=== PATIENT | female | born 1995 | race Caucasian/White ===

== ENCOUNTER 2018-05-25 11:03 | Observation (INO) | payer OTHER ==
[2018-05-25] MEDS ORDERED: NS 1,000 ML IV ONE (11:21)
[2018-05-25 11:29] LABS: PLATELET COUNT 265 10^3/uL (150-400)
--- NOTE | 2018-05-25 11:55 | EDPHY ---
H & P Time Seen by Provider: 05/25/18 11:05 HPI/ROS: CHIEF COMPLAINT: Syncope HISTORY OF PRESENT ILLNESS: 22-year-old female presents to the emergency department by ambulance after having a syncopal episode. The patient states that this morning she woke up and she went to a marijuana dispensary and was standing at the counter and she felt lightheaded and dizzy and felt like she was going to pass out. She had a witnessed syncopal episode and was caught by her friend. She did not sustain any trauma. She has had these symptoms in the past. She has a history of anxiety and PTSD and is prescribed clonidine 0.3 mg to 0.6 mg that she takes as bedtime as needed for insomnia. She also takes Klonopin twice daily for symptoms of anxiety. She denies any other substance abuse. Currently has no complaints. REVIEW OF SYSTEMS: Constitutional: No fever, no chills. Eyes: No double or blurry vision. ENT: No sore throat. Respiratory: No cough, no shortness of breath. Cardiac: No chest pain. Gastrointestinal: No abdominal pain, vomiting or diarrhea. Genitourinary: No dysuria. Musculoskeletal: No neck or back pain. Skin: No rashes. Neurological: No headache. Past Medical/Surgical History: PTSD, anxiety, marijuana use Social History: Single Smoking Status: Never smoked Physical Exam: General Appearance: Alert, no distress. Initial blood pressure was 80/60. Heart rate of 40 Eyes: Pupils equal and round. Extraocular motions are all intact. ENT: Mouth: Mucous membranes moist. Respiratory: No wheezing, rhonchi, or rales, lungs are clear to auscultation. Cardiovascular: Regular rate and rhythm. Bradycardic. Gastrointestinal: Abdomen is soft and nontender, no masses, no rebound or guarding, bowel sounds normal. Neurological: Alert and oriented x 3, cranial nerves II through XII grossly intact Skin: Warm and dry, no rashes. Musculoskeletal: Nontender to palpate along the cervical, thoracic or lumbar spine. Neck is supple. Extremities: Full range of motion and no peripheral edema. Psychiatric: Patient is oriented X 3, there is no agitation. Constitutional: Initial Vital Signs Temperature (C) 36.7 C 05/25/18 11:10 Heart Rate 45 L 05/25/18 11:10 Respiratory Rate 16 05/25/18 11:10 Blood Pressure 88/52 L 05/25/18 11:10 O2 Sat (%) 92 05/25/18 11:10 O2 Delivery Mode Room Air Allergies/Adverse Reactions: No Known Allergies Allergy (Verified 05/25/18 13:30) Home Medications: Medication Instructions Recorded Dextroamphetamine/Amphetamine 10 mg PO DAILY PRN 05/25/18 [Adderall Xr 10 mg Capsule] Herbals/Supplements -Info Only 1 ea PO DAILY 05/25/18 Ibuprofen [Motrin (*)] 200 mg PO DAILY PRN 05/25/18 Levothyroxine [Synthroid 200 mcg 200 mcg PO DAILY06 05/25/18 (*)] Vitamin B Complex [Vitamin B 1 each PO DAILY 05/25/18 Complex (OTC)] clonIDINE [Catapres (*)] 0.3 mg PO HS 05/25/18 clonazePAM [Klonopin (*)] 0.25 mg PO DAILY@15 05/25/18 clonazePAM [Klonopin (*)] 0.5 mg PO DAILY 05/25/18 clonazePAM [klonoPIN (*)] 1 mg PO HS 05/25/18 Medical Decision Making ED Course/Re-evaluation: Patient tells me that she took a total of 0.6 mg of clonidine last night to help her sleep. This is as directed by her psychiatrist. The patient presents to the emergency department initially hypotensive. She received 2 L of IV normal saline. Blood pressure was 100/70. Heart rate remained consistently will below 40. The patient was not complaining feeling dizzy or having any pain in her chest or having difficulty breathing. The case was discussed with Dr. Serafin Sultana, secondary supervising physician, who did not directly evaluate the patient but agrees with treatment plan. He recommended calling ordnance engineering technician on-call. I spoke with Dr. Garrison Jesus, ordnance engineering technician on-call, who recommended that the patient be admitted to the hospitalist due to syncope for telemetry monitoring to make sure that her bradycardia clears possibly due to medication. Differential Diagnosis: Including but not limited to adverse reaction to medication, arrhythmia, electrolyte abnormality, substance abuse - Data Points Laboratory Results: Laboratory Results 05/25/18 11:20 05/25/18 11:20 05/25/18 05/25/18 05/25/18 11:20 11:20 11:20 WBC RBC Hgb Hct MCV MCH MCHC RDW Plt Count MPV Neut % (Auto) Lymph % (Auto) [place] % (Auto) Eos % (Auto) Baso % (Auto) Nucleat RBC Rel Count Absolute Neuts (auto) Absolute Lymphs (auto) Absolute Monos (auto) Absolute Eos (auto) Absolute Basos (auto) Absolute Nucleated RBC Immature Gran % Immature Gran # Sodium 140 mEq/L mEq/L (135-145) Potassium 4.1 mEq/L mEq/L (3.3-5.0) Chloride 105 mEq/L mEq/L (97-110) Carbon Dioxide 21 mEq/l L mEq/l (22-31) Anion Gap 14 mEq/L mEq/L (8-16) BUN 9 mg/dL mg/dL (7-23) Creatinine 0.8 mg/dL mg/dL (0.6-1.0) Estimated GFR > 60 Glucose 95 mg/dL mg/dL (70-100) Calcium 9.9 mg/dL mg/dL (8.5-10.4) Troponin I < 0.012 ng/mL ng/mL (0.000-0.034) TSH 1.480 uIU/mL uIU/mL (0.465-4.680) Beta HCG, Qual NEGATIVE 05/25/18 11:20 WBC 4.17 10^3/uL 10^3/uL (3.80-9.50) RBC 4.71 10^6/uL 10^6/uL (4.18-5.33) Hgb 13.7 g/dL g/dL (12.6-16.3) Hct 41.2 % % (38.0-47.0) MCV 87.5 fL fL (81.5-99.8) MCH 29.1 pg pg (27.9-34.1) MCHC 33.3 g/dL g/dL (32.4-36.7) RDW 12.9 % % (11.5-15.2) Plt Count 265 10^3/uL 10^3/uL (150-400) MPV 9.5 fL fL (8.7-11.7) Neut % (Auto) 37.2 % L % (39.3-74.2) Lymph % (Auto) 52.5 % H % (15.0-45.0) [place] % (Auto) 8.9 % % (4.5-13.0) Eos % (Auto) 0.5 % L % (0.6-7.6) Baso % (Auto) 0.7 % % (0.3-1.7) Nucleat RBC Rel Count 0.0 % % (0.0-0.2) Absolute Neuts (auto) 1.55 10^3/uL L 10^3/uL (1.70-6.50) Absolute Lymphs (auto) 2.19 10^3/uL 10^3/uL (1.00-3.00) Absolute Monos (auto) 0.37 10^3/uL 10^3/uL (0.30-0.80) Absolute Eos (auto) 0.02 10^3/uL L 10^3/uL (0.03-0.40) Absolute Basos (auto) 0.03 10^3/uL 10^3/uL (0.02-0.10) Absolute Nucleated RBC 0.00 10^3/uL 10^3/uL (0-0.01) Immature Gran % 0.2 % % (0.0-1.1) Immature Gran # 0.01 10^3/uL 10^3/uL (0.00-0.10) Sodium Potassium Chloride Carbon Dioxide Anion Gap BUN Creatinine Estimated GFR Glucose Calcium Troponin I TSH Beta HCG, Qual Medications Given: Clonazepam (Klonopin) 0.25 mg PO DAILY@15 GEMA Stop: 11/21/18 15:59 Last Admin: 05/25/18 17:03 Dose: 0.25 mg Discontinued Medications Sodium Chloride (Ns) 1,000 mls @ 0 mls/hr IV ONCE ONE PRN Reason: Wide Open Stop: 05/25/18 11:22 Last Admin: 05/25/18 11:56 Dose: 1,000 mls Departure - Departure Disposition: [facility] Clinical Impression: Bradycardia Syncope Qualifiers: Syncope type: unspecified Qualified Code(s): R55 - Syncope and collapse Condition: Good
[2018-05-25] MEDS ORDERED: ACETAMINOPHEN 325 MG TAB PO PRN (13:31)
[2018-05-25] MEDS ORDERED: IBUPROFEN 200 MG TAB PO PRN (13:33)
--- NOTE | 2018-05-25 13:59 | GDS ---
[f rep st] DISCHARGE SUMMARY CHIEF COMPLAINT: Syncope. HISTORY OF PRESENT ILLNESS: This is a 22-year-old female, who presented with syncope. Notably, she takes clonidine to help her sleep at night. Her dosage is from 0.3 to 0.6. She had difficulty sleep ing last night. Thus she took the higher dose. She was in a marijuana dispensary today when she had a syncopal episode. She had a prodrome of feeling lightheaded with the room slowly going dark. She had no palpitations, chest pain, or shortness of breath. This was witnessed, and she did not have a ny seizure activity. She completely lost consciousness and knocked over a computer and was then help ed to the ground. She is not currently complaining of any significant pain. She has had about 2 or 3 episodes of presyncope in the past year since she has started clonidine. She normally takes the 0. 3 mg dose, does not relate the previous syncopal episodes to the higher dose. She ends up taking the higher dose about once every month or two. She additionally takes Adderall; however, she did not ta ke this today. She tells me her pulse is normally in the 50s and she is normally told that she has a slightly low blood pressure. She is currently not feeling dizzy or lightheaded. She was feeling so mewhat dehydrated, is feeling better after receiving 2 L of normal saline. PAST MEDICAL/SURGICAL HISTORY: 1. ADHD. 2. PTSD. 3. Hypothyroid. MEDICATIONS: Please see medication reconciliation. ALLERGIES: No known drug allergies. SOCIAL HISTORY: She smokes marijuana. She does not use any illegal drugs. She drinks about once or twice a week. FAMILY HISTORY: Her mother had heart disease. Her father had low blood pressure. REVIEW OF SYSTEMS: A 10-point review of systems is conducted and is negative except per HPI. PHYSICAL EXAM: VITAL SIGNS: Initial blood pressure 88/52, heart rate 45, respiration rate 16, satur ating 92% on room air. Temperature 36.7. GENERAL: The patient is a pleasant female who is resting comfortably in no acute distress. HEENT: Shows her to be normocephalic/atraumatic. CARDIOVASCULAR: Shows her to be bradycardic. There are no murmurs, rubs, or gallops. PULMONARY: Lungs clear to a uscultation bilaterally. ABDOMEN: Soft, nontender, and nondistended. SKIN: Shows no rash. : N ajit Larios. NEUROLOGIC: Shows her to be alert and oriented x3. She is moving all extremities. PSYCHIA TRIC: Shows normal mood and affect. LABS: Bicarb is 12. Otherwise basic metabolic panel is normal. CBC is normal. DATA: I reviewed her chart including Dali Wu's note. IMPRESSION AND PLAN: 1. Syncope: Suspect that this is due to relative bradycardia in the setting of clonidine. She was also hypotensive. She may have been slightly dehydrated. I would like to monitor her on telemetry t o assure that she has no evidence of a higher level block. I would like to see her heart rate come u p as well. It was in the 30s when I was meeting with her. Will hold her clonidine and Adderall for now. I have ordered an EKG as well as an echocardiogram to be completed. 2. Social: She has a flight tomorrow morning at 10 o'clock to [place]. I have recommended that s he try to move this flight back and have offered that we would write an airline excuse should she nee d this. 3. Hypothyroid: Will check a TSH and continue her Synthroid. /[id number]/MODL
--- NOTE | 2018-05-25 14:53 | CPEKG ---
Heart Rate: 46 RR Interval: 1304 P-R Interval: 168 QRSD Interval: 92 QT Interval: 468 QTC Interval: 410 P Prue: 41 QRS Prue: 75 T Wave Prue: 47 EKG Severity - OTHERWISE NORMAL ECG - EKG Impression: SINUS BRADYCARDIA Electronically Signed By: Serafin Sultana 25-May-2018 14:57:15
[2018-05-25 15:05] VITALS: BP 107/51
--- NOTE | 2018-05-25 15:48 | ECHO ---
[email or web address] [address] [address] Main: [phone] Fax: Transthoracic Echocardiogram Name: SHANNON ZIMMER MR#: [id number] Study Date: 05/25/2018 Study Time: 02:36 PM Date of : 1995 Age: 22 year(s) Height: 170.2 cm (67 in.) Weight: 62.14 kg (137 lb.) BSA: 1.72 m2 Gender: Female Examination: Echo Indication: BRADYCARDIA Image Quality: Adequate Contrast: Requested by: Charbel Chowdhury BP: 107 mmHg/51 mmHg Heart Rate: Rhythm: Indication: BRADYCARDIA Procedure Staff Track Vehicle Repairer: Gloria Dominguez [facility] Reading Physician: Timbo Correa MD Requesting Provider: Conclusions: Normal study Measurements: Chambers Valvular Assessment AV/MV Valvular Assessment TV/PV Normal Normal Normal Name Value Range Name Value Range Name Value Range Ao Argelia (2D): 2.2 cm (1.4 cm-2.6 AV Vmax: 1.46 m/s (1 m/s-1.7 TR Vmax: 1.98 mm/s ( - ) cm) m/s) TR PGmax: 16 mmHg ( - ) IVSd (2D): 0.8 cm (0.6 cm-1.1 AV maxP mmHg ( - ) syst. PAP: 21 mmHg ( - ) cm) AV meanP mmHg ( - ) PV Vmax: 1.06 m/s (0.6 m/s-0.9 LVDd (2D): 4.6 cm (3.9 cm-5.3 LVOT Vmax: 1.26 m/s (0.7 m/s-1.1 m/s) cm) m/s) PV PGmax: 4 mmHg ( - ) LVDs (2D): 3.0 cm (2.1 cm-4 HOLLY (Vmax): 2.4 cm2 ( - ) cm) HOLLY (VTI): 2.0 cm ( - ) LVPWd (2D): 0.8 cm ( - ) MV E Vmax: 0.93 m/s ( - ) LVOTd 1.9 cm 1.9 cm mm MV A Vmax: 0.46 m/s ( - ) LVEF (BP): 65 % (>=55 %) MV E/A: 2.02 ( - ) RVDd(2D): 2.6 cm (1.9 cm-3.8 MV PHT: 0.058 s ( - ) cmmm) MVA (PHT): 3.8 s ( - ) Continued Measurements: Chambers Valvular Assessment AV/MV Valvular Assessment TV/PV Name Value Name Value Name Value LADs: 3.4 cm MV DecTime: 194 m/s CVP (est.): 5 mmHg LADs Lon.2 cm MV E/E' Septal: 7.70 LA Area: 18.3 cm2 MV E/E' Lateral: 4.40 LA Volume: 56 ml LA Volume Index: 32.6 ml/m2 Patient: SHANNON ZIMMER Study Date: 05/25/2018 Page 1 of 2 02:36 PM Additional Vessels Name Value Ao Ascendin.3 cm Inferior Vena Cava: 1.6 cm Findings: Left Ventricle: Normal size left ventricle. No LV hypertrophy. Normal global systolic LV function. EF is 65 %. No regional wall motion abnormality. Normal diastolic LV function. Right Ventricle: Normal size right ventricle. Normal RV function. Left Atrium: The left atrium is normal in size. Right Atrium: The right atrium is normal in size. Mitral Valve: The mitral valve is normal in appearance and function. Mild mitral valve regurgitation is present. No mitral stenosis is present. Aortic Valve: The aortic valve is tri-leaflet. Mild aortic valve regurgitation is present. No aortic valve stenosis is present. Tricuspid Valve: The tricuspid valve is normal in appearance and function. Mild tricuspid regurgitation is present. The pulmonary artery pressure is normal. Right ventricular systolic pressure measures 21mmHg. Pulmonic Valve: The pulmonic valve is normal in appearance and function. Mild pulmonic valve regurgitation is noted. Aorta: The aorta is normal. Normal size aortic root measuring 2.2 cm. Normal size ascending aorta measuring 2.3 cm. IVC: The IVC is normal sized. Pericardium: No pericardial effusion. Respiratory variation is greater than 25%. No pleural effusion. (No Signature Object) Patient: SHANNON ZIMMER Study Date: 05/25/2018 Page 2 of 2 02:36 PM [id number]
[2018-05-25] MEDS ORDERED: clonazePAM 0.5 MG TAB PO SCH (16:00)
--- NOTE | 2018-05-25 19:32 | GDS ---
[f rep st] DISCHARGE SUMMARY DATE OF AMA DEPARTURE: 05/25/2018. ALL DIAGNOSES: 1. Syncope. 2. Bradycardia. 3. Hypertension. 4. Clonidine use. HOSPITAL COURSE: A 22-year-old female admitted with syncope. She was found to be bradycardic and hy potensive. She had taken clonidine the night before. Suspect this is likely the etiology. She left AMA without alerting anybody. I was alerted after she had already left. She had an IV, and police were called non-emergently to return her to the emergency department if possible. Drug screen was jolene sanchez at the time. /[id number]/MODL
[2018-05-25] MEDS ORDERED: MELATONIN 3 MG TAB PO SCH (21:00)
[2018-05-25] MEDS ORDERED: clonazePAM 1 MG TAB PO SCH (21:00)
[2018-05-26] MEDS ORDERED: LEVOTHYROXINE 200 MCG TAB PO SCH (06:00)
[2018-05-26] MEDS ORDERED: clonazePAM 0.5 MG TAB PO SCH (09:00)
[2018-05-26] MEDS ORDERED: VITAMIN B COMPLEX 1 EA CAP/TAB PO SCH (09:00)
== END 2018-05-25 17:45 | disposition left against medical advice (07) ==
LOC: INTOOBSV 12:30 → UNDOADMOB 12:30 → F2W 14:15
PROVIDERS: ADMIT Family Medicine; ATTEND Student in an Organized Health Care Education/Training Program
DX: R00.1 Bradycardia, unspecified (principal); R55 Syncope and collapse; T46.5X5A Adverse effect of other antihypertensive drugs, initial encounter; F90.9 Attention-deficit hyperactivity disorder, unspecified type; F43.10 Post-traumatic stress disorder, unspecified; E03.9 Hypothyroidism, unspecified; F12.90 Cannabis use, unspecified, uncomplicated
CPT/HCPCS: 93005; 93306; G0378

== ENCOUNTER 2018-06-08 14:24 | Emergency (ER) | payer OTHER ==
--- NOTE | 2018-06-08 15:06 | CPEKG ---
Heart Rate: 55 RR Interval: 1091 P-R Interval: 176 QRSD Interval: 92 QT Interval: 412 QTC Interval: 394 P Pepin: 41 QRS Pepin: 57 T Wave Pepin: 18 EKG Severity - BORDERLINE ECG - EKG Impression: SINUS RHYTHM EKG Impression: PROBABLE LEFT ATRIAL ABNORMALITY Electronically Signed By: Rita Young 08-Jun-2018 17:42:18
--- NOTE | 2018-06-08 15:37 | EDPHY ---
H & P Time Seen by Provider: 06/08/18 14:40 HPI/ROS: HPI Near fainting. 22-year-old female by private vehicle with her boyfriend. This patient was out drinking last night. She reports that she woke up this morning and felt very tired, had a gradual onset dull headache and felt nauseous. She made her way to the bathroom slowly. When she got to the bathroom she describes having a sensation of lightheadedness. She lowered herself to the floor. She reports that she almost fainted but did not lose consciousness. She had some dry heaving but no vomiting. She then went back to bed, fell asleep and woke up at 1:00 p.m.. When she woke up 1:00 p.m. She still felt nauseous had a dull headache and felt lightheaded. She is also concerned because she cannot remember her cell phone past code. ROS: Constitutional: No fever, no chills. As above. Eyes: No discharge. No changes in vision. ENT: No sore throat. No nasal congestion or rhinorrhea. Respiratory: No cough. No shortness of breath. Cardiac: No chest pain, no palpitations. Gastrointestinal: No abdominal pain, as above, no diarrhea. Genitourinary: No hematuria. No dysuria or increased frequency with urination. Musculoskeletal: No back pain. No neck pain. No myalgias or arthralgias. Skin: No rashes. Neurological: As above. No focal weakness or altered sensation. Past medical history: Similar incident under similar circumstances last April. Otherwise no past medical history. Social history: Nonsmoker. Student [employer]. Here with her boyfriend. Drinks alcohol socially. Denies IV drugs and street drugs. Physical Exam: General Appearance: Alert, no distress. This patient is responding to questions appropriately and in full sentences. This patient appears well- hydrated and well-nourished. Eyes: Pupils equal and round no pallor or injection. No lid edema, erythema or injection. No photophobia. No nystagmus. ENT, Mouth: Mucous membranes are moist. The pharyngeal tissues are unremarkable. No edema or swelling. No asymmetry suggestive of abscess. No erythema or exudates. No tongue lacerations or abrasions. Respiratory: There are no retractions, lungs are clear to auscultation with good air movement bilaterally. Cardiovascular: Regular rate and rhythm. No murmur appreciated. Gastrointestinal: Abdomen is soft and nontender, no masses, bowel sounds normal. No focal tenderness at McBurney's point. No Briceno sign. Neurological: Motor sensory function is grossly intact. Cranial nerves are normal. Gait is normal. Skin: Warm and dry, no rashes. Musculoskeletal: Neck is supple and nontender. No pain on flexion of her neck. Extremities are symmetrical. All joints range without pain or impingement. Psychiatric: No agitation. No depression. Database: EKG: EKG time is 2:56 p.m.; EKG shows a narrow complex normal sinus rhythm with a ventricular rate of 55. The LA, QRS, QT intervals are within normal limits. There are no ST-T wave changes indicative of ischemic or injury pattern. No evidence of right heart strain. No evidence of WPW, Brugada syndrome, hypertrophic cardiomyopathy. Interpreted by me. Imaging: Procedures: Emergency department course: Vital signs reviewed and are normal. This patient's emergency department workup has been unremarkable. She remembers her home address, where she is from , the president and answer appropriately to other memory questions I asked her. No red flags on her EKG. She is not anemic. Her electrolytes are unremarkable. Her presentation is consistent with her drinking alcohol last night and symptoms related to this and dehydration. I feel a cardiac etiology of syncope is very unlikely in this patient. She feels comfortable going home with her boyfriend and I feel she is safe for discharge. Follow-up and return to emergency department precautions reviewed. All of her questions were answered. She was discharged in good condition. Differential Diagnosis: The differential diagnosis on this patient includes but is not limited to dehydration, noncardiac near syncope. Subarachnoid hemorrhage, arrhythmia, acute coronary syndrome, pulmonary embolism, CVA unlikely. This represents a partial list of diagnoses considered. These considerations are based on history , physical exam, past history, reassessment and diagnostic testing. Smoking Status: Never smoked Constitutional: Initial Vital Signs Temperature (C) 36.8 C 06/08/18 14:28 Heart Rate 87 06/08/18 14:28 Respiratory Rate 18 06/08/18 14:28 Blood Pressure 112/74 06/08/18 14:28 O2 Sat (%) 96 06/08/18 14:28 O2 Delivery Mode Room Air Allergies/Adverse Reactions: No Known Allergies Allergy (Verified 05/25/18 13:30) Home Medications: Medication Instructions Recorded Dextroamphetamine/Amphetamine 10 mg PO DAILY PRN 05/25/18 [Adderall Xr 10 mg Capsule] Herbals/Supplements -Info Only 1 ea PO DAILY 05/25/18 Ibuprofen [Motrin (*)] 200 mg PO DAILY PRN 05/25/18 Levothyroxine [Synthroid 200 mcg 200 mcg PO DAILY06 05/25/18 (*)] Vitamin B Complex [Vitamin B 1 each PO DAILY 05/25/18 Complex (OTC)] clonIDINE [Catapres (*)] 0.3 mg PO HS 05/25/18 clonazePAM [Klonopin (*)] 0.25 mg PO DAILY@15 05/25/18 clonazePAM [Klonopin (*)] 0.5 mg PO DAILY 05/25/18 clonazePAM [klonoPIN (*)] 1 mg PO HS 05/25/18 Ondansetron Odt [Zofran Odt 4 mg 4 mg PO Q4PRN PRN #10 tab 06/08/18 (*)] Medical Decision Making - Data Points Laboratory Results: 06/08/18 15:13 POC Hgb 12.6 gm/dL gm/dL (12.6-16.3) POC Hct 37 % L % (38-47) POC Sodium 137 mEq/L mEq/L (135-145) POC Potassium 4.0 mEq/L mEq/L (3.3-5.0) POC Chloride 104 mEq/L mEq/L (97-110) POC BUN 11 mg/dL mg/dL (7-23) POC Creatinine 0.8 mg/dL mg/dL (0.6-1.0) POC Glucose 91 mg/dL mg/dL (70-100) Point of Care Test Results: Chemistry 06/08/18 15:13 POC Sodium 137 mEq/L mEq/L (135-145) POC Potassium 4.0 mEq/L mEq/L (3.3-5.0) POC Chloride 104 mEq/L mEq/L (97-110) POC BUN 11 mg/dL mg/dL (7-23) POC Creatinine 0.8 mg/dL mg/dL (0.6-1.0) POC Glucose 91 mg/dL mg/dL (70-100) ISTAT H&H 06/08/18 15:13 POC Hgb 12.6 gm/dL gm/dL (12.6-16.3) POC Hct 37 % L % (38-47) Departure - Departure Disposition: Home, Routine, Self-Care Clinical Impression: Near syncope, Dehydration Condition: Good Instructions: Syncope (ED), Dehydration (ED) Additional Instructions: Read and follow provided instructions. Follow-up with your primary care physician in 1-2 days for re-evaluation. Do not drink alcohol. Drink lots of fluids and keep yourself well hydrated. Take medication for nausea as needed as prescribed. Return to the emergency department for worsening symptoms, fainting, vomiting or other serious concerns. Referrals: NONE *PRIMARY CARE P,. [Primary Care Provider] - As per Instructions Prescriptions: Ondansetron Odt [Zofran Odt 4 mg (*)] 4 mg PO Q4PRN PRN #10 tab PRN Reason: For Nausea & Vomiting
[2018-06-08 15:57] VITALS: BP 102/56
== END 2018-06-08 15:54 | disposition home or self-care (01) ==
DX: R55 Syncope and collapse (principal); E86.0 Dehydration
CPT/HCPCS: 82435-PO; 82565-PO; 82947-PO; 84132-PO; 84295-PO; 84520-PO; 85014-PO

== ENCOUNTER 2018-06-26 13:09 | Emergency (ER) | payer OTHER ==
--- NOTE | 2018-06-26 13:21 | EDPHY ---
H & P Stated Complaint: N/V SYNCOPE LAST FEW WEEKS SEEN 05/25 AND 06/08 FOR SAME Time Seen by Provider: 06/26/18 13:19 HPI/ROS: CHIEF COMPLAINT: Presyncope, vomiting HISTORY OF PRESENT ILLNESS: The patient presents the ED with presyncope and vomiting for the past 3 days. This was proceeded by some nonbloody diarrhea. Patient has been seen in the emergency department 3 times over the past 6 weeks for symptoms related presyncope. The 1st time it was felt to be secondary to her clonidine usage. 2nd time was felt to be secondary to alcohol on dehydration. The patient denies any recent antibiotic use. She denies any significant abdominal pain. She is on a number of medications for insomnia and PTSD. The patient reports he has been on a stable dose of medications. She denies any recent alcohol consumption. She does use occasional marijuana. She has no prior history of chronic vomiting. The patient denies any acute chest pain or dyspnea. She denies any acute complaints. REVIEW OF SYSTEMS: A comprehensive 10 point review of systems is otherwise negative aside from elements mentioned in the history of present illness. Source: Patient Exam Limitations: No limitations - Personal History LMP (Females 10-55): 1-7 Days Ago Current Tetanus Diphtheria and Acellular Pertussis (TDAP): Yes - Medical/Surgical History Hx Asthma: No Hx Chronic Respiratory Disease: No Hx Diabetes: No Hx Cardiac Disease: No Hx Renal Disease: No Hx Cirrhosis: No Hx Alcoholism: No Hx HIV/AIDS: No Hx Splenectomy or Spleen Trauma: No Other PMH: syncope - Social History Smoking Status: Never smoked - Physical Exam Exam: General Appearance: Alert, no distress Eyes: Pupils equal and round no pallor or injection ENT, Mouth: Mucous membranes moist Respiratory: There are no retractions, lungs are clear to auscultation Cardiovascular: Regular rate and rhythm Gastrointestinal: Abdomen is soft and nontender, no masses, bowel sounds normal Neurological: A&O, normal motor function, normal sensory exam, normal cranial nerves Skin: Warm and dry, no rashes Musculoskeletal: Neck is supple nontender Extremities: symmetrical, full range of motion Constitutional: Initial Vital Signs Temperature (C) 36.4 C 06/26/18 13:13 Heart Rate 64 06/26/18 13:13 Respiratory Rate 18 06/26/18 13:13 Blood Pressure 109/77 06/26/18 13:13 O2 Sat (%) 98 06/26/18 13:13 O2 Delivery Mode Room Air Allergies/Adverse Reactions: No Known Allergies Allergy (Verified 06/26/18 13:12) Home Medications: Medication Instructions Recorded Dextroamphetamine/Amphetamine 10 mg PO DAILY PRN 05/25/18 [Adderall Xr 10 mg Capsule] Herbals/Supplements -Info Only 1 ea PO DAILY 05/25/18 Ibuprofen [Motrin (*)] 200 mg PO DAILY PRN 05/25/18 Levothyroxine [Synthroid 200 mcg 200 mcg PO DAILY06 05/25/18 (*)] Vitamin B Complex [Vitamin B 1 each PO DAILY 05/25/18 Complex (OTC)] clonIDINE [Catapres (*)] 0.3 mg PO HS 05/25/18 clonazePAM [Klonopin (*)] 0.25 mg PO DAILY@15 05/25/18 clonazePAM [Klonopin (*)] 0.5 mg PO DAILY 05/25/18 clonazePAM [klonoPIN (*)] 1 mg PO HS 05/25/18 Ondansetron Odt [Zofran Odt 4 mg 4 mg PO Q4PRN PRN #10 tab 06/08/18 (*)] Medical Decision Making - Diagnostics EKG Interpretation: EKG: Complete interpretation has been separately recorded in the [facility] archive. Summary impression: Sinus rhythm, rate 59 ED Course/Re-evaluation: I reviewed the patient's past medical records including her workup earlier this and April. She was hospitalized for syncope from presumed clonidine ingestion. During that hospitalization the patient eloped from the hospital. She did undergo an unremarkable echocardiogram. I reviewed the results of her prior ED evaluation. Today in the emergency department she is hemodynamically stable with a benign abdominal examination. She presents to the ED with recurrent presyncope in the setting of likely volume depletion from a viral gastrointestinal infection. The patient had an IV established for dehydration and presyncope. She received 1 L of normal saline. The patient's laboratory studies are unremarkable. Her EKG demonstrates no evidence of an arrhythmia. The patient was reassessed at 3:00 p.m.. She is now ambulatory. She has had no recurrent vomiting. At this point time I do feel she can safely be discharged home with a likely diagnosis of vasovagal syncope. She has been given a prescription for Zofran. She is advised to increase her fluid intake. She should follow up with her regular psychiatrist as scheduled. Differential Diagnosis: Differential diagnosis considered includes arrhythmia, anemia, dehydration, metabolic abnormality, medication side effect - Data Points Laboratory Results: Laboratory Results 06/26/18 13:30 06/26/18 13:30 06/26/18 06/26/18 06/26/18 13:30 13:30 13:30 WBC 3.28 10^3/uL L 10^3/uL (3.80-9.50) RBC 4.43 10^6/uL 10^6/uL (4.18-5.33) Hgb 13.2 g/dL g/dL (12.6-16.3) Hct 39.0 % % (38.0-47.0) MCV 88.0 fL fL (81.5-99.8) MCH 29.8 pg pg (27.9-34.1) MCHC 33.8 g/dL g/dL (32.4-36.7) RDW 13.3 % % (11.5-15.2) Plt Count 249 10^3/uL 10^3/uL (150-400) MPV 9.4 fL fL (8.7-11.7) Neut % (Auto) 43.0 % % (39.3-74.2) Lymph % (Auto) 48.5 % H % (15.0-45.0) Page % (Auto) 7.6 % % (4.5-13.0) Eos % (Auto) 0.3 % L % (0.6-7.6) Baso % (Auto) 0.6 % % (0.3-1.7) Nucleat RBC Rel Count 0.0 % % (0.0-0.2) Absolute Neuts (auto) 1.41 10^3/uL L 10^3/uL (1.70-6.50) Absolute Lymphs (auto) 1.59 10^3/uL 10^3/uL (1.00-3.00) Absolute Monos (auto) 0.25 10^3/uL L 10^3/uL (0.30-0.80) Absolute Eos (auto) 0.01 10^3/uL L 10^3/uL (0.03-0.40) Absolute Basos (auto) 0.02 10^3/uL 10^3/uL (0.02-0.10) Absolute Nucleated RBC 0.00 10^3/uL 10^3/uL (0-0.01) Immature Gran % 0.0 % % (0.0-1.1) Immature Gran # 0.00 10^3/uL 10^3/uL (0.00-0.10) Sodium 139 mEq/L mEq/L (135-145) Potassium 4.0 mEq/L mEq/L (3.3-5.0) Chloride 107 mEq/L mEq/L (97-110) Carbon Dioxide 24 mEq/l mEq/l (22-31) Anion Gap 8 mEq/L mEq/L (8-16) BUN 13 mg/dL mg/dL (7-23) Creatinine 0.8 mg/dL mg/dL (0.6-1.0) Estimated GFR > 60 Glucose 88 mg/dL mg/dL (70-100) Calcium 9.4 mg/dL mg/dL (8.5-10.4) Beta HCG, Qual NEGATIVE Departure - Departure Disposition: Home, Routine, Self-Care Clinical Impression: Dehydration, Vasovagal syncope, Gastroenteritis Condition: Good Instructions: Syncope (DC) Additional Instructions: 1. Zofran as needed for nausea and vomiting. 2. Return to the ED for worsening symptoms, pain, recurrent passing out or other concerns. 3. Please try and increase your fluid intake as you likely had symptoms related to dehydration today.
--- NOTE | 2018-06-26 13:28 | CPEKG ---
Heart Rate: 59 RR Interval: 1017 P-R Interval: 152 QRSD Interval: 94 QT Interval: 444 QTC Interval: 440 P Gould: 36 QRS Gould: 56 T Wave Gould: 32 EKG Severity - NORMAL ECG - EKG Impression: SINUS RHYTHM Electronically Signed By: Nadeem Burgos 26-Jun-2018 13:47:56
[2018-06-26 13:50] LABS: PLATELET COUNT 249 10^3/uL (150-400)
[2018-06-26 14:57] VITALS: BP 103/62
== END 2018-06-26 15:02 | disposition home or self-care (01) ==
DX: R55 Syncope and collapse (principal); R11.10 Vomiting, unspecified